=== PATIENT | male | born 1990 | race African-American/Black ===

== ENCOUNTER 2018-03-25 12:26 | Emergency (ER) | payer SELFPAY ==
[~2018-03-25] VITALS: Ht 175.3 cm; Wt 120.9 kg
[2018-03-25] MEDS ORDERED: KEFLEX500 MG PO (15:19)
[2018-03-25] MEDS ORDERED: PERCOCET 5/31 TABLET PO (15:34)
[2018-03-25 15:41] VITALS: BP 132/82
== END 2018-03-25 15:41 | disposition home or self-care (01) ==
LOC: EME 12:26
PROC: 0H9LXZZ Drainage of Left Lower Leg Skin, External Approach (ICD-10-PCS; principal; 2018-03-25)
DX: L73.9 Follicular disorder, unspecified (principal); L02.416 Cutaneous abscess of left lower limb; F17.200 Nicotine dependence, unspecified, uncomplicated
CPT/HCPCS: 99281; 99284

== ENCOUNTER 2018-05-21 19:24 | Emergency (ER) | payer SELFPAY ==
[~2018-05-21] VITALS: Ht 175.3 cm; Wt 116.8 kg
[~2018-05-21 19:24] MED LIST: KEFLEX500 MG PO; PERCOCET 5/31 TABLET PO
[2018-05-21] MEDS ORDERED: PERCOCET 5/31 TABLET PO (20:22)
[2018-05-21] MEDS ORDERED: CLEOCIN300 MG PO (20:22)
[2018-05-21] MEDS ORDERED: BACTROBAN OINTM22 GM NS (20:24)
[2018-05-21 21:12] VITALS: BP 137/92
== END 2018-05-21 21:13 | disposition home or self-care (01) ==
LOC: EME 19:24
DX: L02.415 Cutaneous abscess of right lower limb (principal); L03.115 Cellulitis of right lower limb
CPT/HCPCS: 99281; 99283